=== PATIENT | male | born 1945 | race American Indian/Alaskan Native ===

== ENCOUNTER 2018-11-23 10:02 | Outpatient (CLI) | payer MEDICARE, BC | END 2018-11-23 10:03 | disposition home or self-care (01) | LOC: C.PAT 10:02 | DX: I87.1 Compression of vein (principal) ==

== ENCOUNTER 2018-11-27 11:24 | Inpatient (IN) | payer MEDICARE, BC ==
[2018-11-23 10:16] VITALS: BMI 25.0
[2018-11-27 12:24] LABS: CALCIUM 8.6 mg/dl (8.6-10.4)
[2018-11-27] MEDS ORDERED: Lidocaine 2% MPF (5 ml) Inj ONE (12:34)
[2018-11-27] MEDS ORDERED: Iodixanol 320 MG/ML 100 ML BOTTLE IV ONE ×2 (12:35→12:47)
[2018-11-27] MEDS ORDERED: Midazolam 2 MG/2 ML VIAL ONE ×2 (12:41→13:01)
--- NOTE | 2018-11-27 13:21 | PCM.SURG1 ---
Surgeon's Initial Post Op Note - Surgeon's Notes Surgeon: maikel Corrosion Control Engineer: 0 Type of Anesthesia: IV Sedation Anesthesia Administered By: doc Pre-Operative Diagnosis: renal failure/ central vein stenosis Operative Findings: tight stenosis at junction of subclavian and innominate vein right. suspected 2nd stenosis at innominate Post-Operative Diagnosis: same Operation Performed: fistulagram right arm/ balloon angioplasty of right sublavian. balloon angioplasty of innominate vein Specimen/Specimens Removed: 0 Estimated Blood Loss: EBL {In ML}: 10 Blood Products Given: N/A Drains Used: No Drains Post-Op Condition: Good Date of Surgery/Procedure: 11/27/18 Time of Surgery/Procedure: 13:22
--- NOTE | 2018-11-27 17:23 | CP.PCM.CON ---
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 will repeat labs in AM Hypertension control with meds as ordered. Maintain hemodynamics stable. Avoid hypotension. Patient not on ACEI/ARB due to advanced CKD Monitor Input/Output, daily weights and renal function with basic metabolic panel continue with lasix increased to 40 bid on iron and MVI Re Tx: continue with prograf and prednisone Dose meds/antibiotics for reduced GFR. Avoid fleets enema/magnesium based laxatives. Avoid nephrotoxins/NSAIDs/ iodinated contrast (unless needed emergently) Glycemic control Further work up/management as per primary team Thanks for allowing me to participate in care of your patient. Will follow patient with you. Please call if any Qs. had d/w team Dr Silvano Recinos Office: [phone] Chief Complaint; leg swelling Reason for consult: CKD 5 HPI: Pt is a 73 M with hx of hypertension (years) DM ESRD s/p HD x 4 years then DDRT in 2009 with progressive decline in kidney function now with CKD 5 presented for Rt arm swelling where he had AVF and found to have stenosis s/p ballon angiplasty. renal consult for CKD and Tx management Denies OTC/herbal meds or NSAIDs No recent iodinated contrast exposure. No obvious episodes of low BP. c/o leg swelling. no nausea/vomitting/SOB. says appetite okay ROS: Cardiovascular: No chest pain. Pulmonary: No shortness of breath Gastrointestinal: denies abdominal pain No nausea. No vomiting. Genitourinary: No pain while urinating. Denies blood in urine. All other negative except as mentioned in HPI Physical Examination: General Appearance: Comfortable, in no acute respiratory distress, co-operative . Vitals reviewed and noted as below Head; Atraumatic, normocephalic ENT: no ulcers no thrush. Tongue is midline. Oropharynx: no rash or ulcers. EYES: Pupils are equal, round and reactive to light accommodation. Eye muscles and extraocular movement intact. Sclera is anicteric. Neck; supple no lymphadenopathy, no thyromegaly or bruit Lungs: Normal respiratory rate/effort. Breath sounds bilateral equal and clear Heart: Normal rate. s1s2 normal. No rub or gallop. Extremities: 1+ edema. No varicose veins Neurological: Patient is alert, awake and oriented to person, place and time. No focal deficit. Strength bilateral appropriate and equal Skin: Warm and dry. Normal turgor. No rash. Palpitation: Normal elasticity for age Abdomen: Abdomen is soft. Bowel sounds +. There is no abdominal tenderness, no guarding/rigidity no organomegaly Psych: normal insight and normal affect/mood MSK: no joint tenderness or swelling. Digits and nails normal, no deformity : kidney or bladder not palpable Rt AVF with thrill and bruit RUE edema + Labs/imaging reviewed. Past medical history, past surgical history, family history, social history, allergy reviewed and noted as below Family hx: no hx of CKD. Rest non-contributory Past Patient History - Past Medical History & Family History Past Medical History?: Yes - Past Social History Smoking Status: Former Smoker - CARDIAC Hx Cardiac Disorders: Yes Hx Hypertension: Yes - PULMONARY Hx Respiratory Disorders: No - NEUROLOGICAL Hx Neurological Disorder: No - HEENT Hx HEENT Problems: Yes Hx Cataracts: Yes Hx Glaucoma: Yes - RENAL Hx Chronic Kidney Disease: Yes Type of Dialysis Access: RIGHT ARM AV SHUNT Hx Renal Failure: Yes Other/Comment: HX: KIDNEY TRANSPLANT 2009 - ENDOCRINE/METABOLIC Hx Endocrine Disorders: Yes Hx Diabetes Mellitus Type 2: Yes - HEMATOLOGICAL/ONCOLOGICAL Hx Blood Disorders: Yes Hx Blood Transfusions: Yes Hx Blood Transfusion Reaction: No - INTEGUMENTARY Hx Dermatological Problems: No - MUSCULOSKELETAL/RHEUMATOLOGICAL Hx Musculoskeletal Disorders: No - GASTROINTESTINAL Hx Gastrointestinal Disorders: Yes Hx Gall Bladder Disease: Yes - GENITOURINARY/GYNECOLOGICAL Hx Genitourinary Disorders: No - PSYCHIATRIC Hx Psychophysiologic Disorder: No - SURGICAL HISTORY Hx Surgeries: Yes Hx Arteriovenous Shunt: Yes (RIGHT UPPER ARM) Hx Cataract Extraction: Yes (LEFT EYE ) Hx Cholecystectomy: Yes Other/Comment: HX: KIDNEY TRANSPLANT(2009) - ANESTHESIA Hx Anesthesia: Yes Hx Anesthesia Reactions: No Hx Malignant Hyperthermia: No Has any member of the family had a problem w/ anesthesia?: No Meds Allergies/Adverse Reactions: Allergies Allergy/AdvReac Type Severity Reaction Status Date / Time No Known Allergies Allergy Verified 11/23/18 10:13 - Medications Medications: Current Medications Allopurinol (Zyloprim) 100 mg PO DAILY [facility] Amlodipine Besylate (Norvasc) 10 mg PO DAILY [facility] Carvedilol (Coreg) 25 mg PO BID [facility] Cinacalcet (Sensipar) 30 mg PO DAILY [facility] Clonidine HCl (Catapres) 0.1 mg PO DAILY [facility] Ferrous Sulfate (Feosol) 325 mg PO DAILY [facility] Furosemide (Lasix) 40 mg PO BID [facility] Hydralazine HCl (Apresoline) 50 mg PO BID [facility] Insulin Glargine (Lantus) 13 unit SC HS [facility] Pantoprazole Sodium (Protonix Ec Tab) 40 mg PO DAILY [facility] Prednisone (Prednisone Tab) 5 mg PO DAILY [facility] Rosuvastatin Calcium (Crestor) 5 mg PO HS [facility] Sevelamer Carbonate (Renvela) 800 mg PO DAILY [facility] Sodium Bicarbonate (Sodium Bicarbonate Tab) 1,300 mg PO BID [facility] Tacrolimus (Prograf Cap) 3 mg PO BID [facility] Tamsulosin HCl (Flomax) 0.4 mg PO DAILY [facility] Vitamin B Complex/Vit C/Folic Acid (Nephro-Mikey) 1 tab PO 0800 [facility] Results - Labs Result Diagrams: 11/27/18 11:58 Labs: Laboratory Results - last 24 hr 11/27/18 11/27/18 11/27/18 11:58 12:00 16:54 Sodium 141 Potassium 4.5 Chloride 112 H Carbon Dioxide 18 L Anion Gap 16 BUN 100 H* Creatinine 6.0 H Est GFR ( Amer) 11 Est GFR (Non-Af Amer) 9 POC Glucose (mg/dL) 105 240 H Random Glucose 98 Calcium 8.6
[2018-11-27] MEDS: (Lantus) Insulin Glargine, Recombinant SC SCH (21:38)
[2018-11-27] MEDS: (Novolin R) Insulin Human Regular 100 units/ml vial SC SCH (21:39)
--- NOTE | 2018-11-28 07:33 | VAS ---
DATE: 11/27/2018 PREOPERATIVE DIAGNOSES: Renal failure and central vein stenosis. PROCEDURES CARRIED OUT: Fistulogram, right arm and balloon angioplasty of right subclavian vein and right innominate vein. SURGEON: Chan Mason Jr., MD. TITLE INSURANCE SALES REPRESENTATIVE: None. ANESTHESIOLOGIST: Mr. Carr. ANESTHESIA: Local with sedation. INDICATIONS: A 73-year-old man with renal insufficiency, kidney creatinine of approximately 5. The patient is complaining there was more swelling in the arm. OPERATIVE FINDINGS: The initial fistulogram demonstrated there is a tight web-like stenosis at the junction of the subclavian vein and the innominate vein. In addition, on a subsequent film, it appeared that there was stenosis actually in the innominate vein itself and this was dilated to 12 mm. The arterial anastomosis was not visualized as the catheter came out unexpectedly. DESCRIPTION OF PROCEDURE: The patient was given local anesthesia. The fistula was punctured and the guidewire advanced centrally. There is only one as far as the subclavian vein and did not go centrally. We then placed in a larger sheath, a 6-L[place]ian sheath, a CURRENTenstein catheter, stiff-angled Glidewire and eventually we were able to cross this lesion, which crossed then. We then exchanged for a [employer] wire and we were able to balloon this initially with an 8 mm balloon that had a small waist. Then, finally with a 12 mm balloon that had a waist that was fairly pronounced during its inflation. We then subsequently saw what appeared to be a central vein stenosis in the innominate vein and we dilated this again with a 12 mm balloon. After all this was completed, the flow appeared to be much better. The stenosis was no longer evident and the balloons and sheath were withdrawn. Pressure was applied to the puncture site and the bleeding ceased spontaneously. BLOOD LOSS: Less than 10 mL. Chan Mason Jr., MD cc: Dr. Edwards.
[2018-11-28 07:47] LABS: BASO % 0.9 % (0.0-2.0); EOS # 0.1 K/uL (0.0-0.7); LYMPH % 34.4 % (20.0-40.0); MEAN CORPUSCULAR HEMOGLOBIN 29.6 pg (27.0-31.0); MEAN CORPUSCULAR HGB CONC 32.5 g/dL (33.0-37.0); MEAN PLATELET VOLUME 8.5 fL (7.2-11.7); MONO # 0.6 K/uL (0.0-0.8); MONO % 9.7 % (0.0-10.0); NEUT # 3.1 K/uL (1.8-7.0); RBC 3.05 Mil/uL (4.40-5.90); RED CELL DISTRIBUTION WIDTH 14.3 % (11.5-14.5); WHITE BLOOD COUNT 5.8 K/uL (4.8-10.8)
[2018-11-28] MEDS: Multivitamin Vitamin B Complex (Nephro-Vite) Tab PO SCH (08:11)
[2018-11-28] MEDS: (Novolin R) Insulin Human Regular 100 units/ml vial SC SCH ×4 (08:18→21:10)
[2018-11-28 08:23] LABS: ALB/GLOB RATIO 1.5 (1.0-2.1); ALBUMIN 3.1 g/dL (3.5-5.0); CALCIUM 8.7 mg/dl (8.6-10.4)
[2018-11-28] MEDS: Pantoprazole 40 mg EC Tab PO SCH (09:47)
[2018-11-28] MEDS: EPOETIN ALFA 4,000 UNIT/ML ML Dialysis SC SCH (11:11)
--- NOTE | 2018-11-28 11:49 | CP.PCM.PN ---
Subjective - Date & Time of Evaluation Date of Evaluation: 11/28/18 Time of Evaluation: 06:49 - Subjective Subjective: Vascular Surgery Dr. Mason Pt seen and examined @bedside. Pt underwent fistulogram and balloon angioplasty yesterday. Pt tolerated procedure well w/ no complications. No acute events overnight. Pt has no complaints. pain well controlled. denies F/C,CP, SOB, arm pain. tolerating diet. Objective - Vital Signs/Intake and Output Vital Signs (last 24 hours): Temp Pulse Resp BP Pulse Ox 98.7 F 67 20 151/62 H 95 11/28/18 07:31 11/28/18 07:31 11/28/18 07:31 11/28/18 09:42 11/28/18 09:20 Intake and Output: 11/28/18 11/28/18 06:59 18:59 Intake Total 120 Balance 120 - Medications Medications: Current Medications Allopurinol (Zyloprim) 100 mg PO DAILY [facility] Last Admin: 11/28/18 09:41 Dose: 100 mg Amlodipine Besylate (Norvasc) 10 mg PO DAILY [facility] Last Admin: 11/28/18 09:42 Dose: 10 mg Carvedilol (Coreg) 25 mg PO BID [facility] Last Admin: 11/28/18 09:42 Dose: 25 mg Cinacalcet (Sensipar) 30 mg PO DAILY [facility] Last Admin: 11/28/18 09:39 Dose: 30 mg Clonidine HCl (Catapres) 0.1 mg PO DAILY [facility] Last Admin: 11/28/18 09:41 Dose: 0.1 mg Epoetin Jony (Procrit) 8,000 unit SC TTS [facility] Last Admin: 11/28/18 11:11 Dose: 8,000 unit Ferrous Sulfate (Feosol) 325 mg PO DAILY [facility] Last Admin: 11/28/18 09:42 Dose: 325 mg Furosemide (Lasix) 40 mg PO BID [facility] Last Admin: 11/28/18 09:40 Dose: 40 mg Hydralazine HCl (Apresoline) 50 mg PO BID [facility] Last Admin: 11/28/18 09:40 Dose: 50 mg Insulin Glargine (Lantus) 13 unit SC HS [facility] Last Admin: 11/27/18 21:38 Dose: 13 u Insulin Human Regular (Novolin R) 0 unit SC ACHS [facility]; Protocol Last Admin: 11/28/18 11:30 Dose: Not Given Pantoprazole Sodium (Protonix Ec Tab) 40 mg PO DAILY [facility] Last Admin: 11/28/18 09:47 Dose: 40 mg Prednisone (Prednisone Tab) 5 mg PO DAILY [facility] Last Admin: 11/28/18 09:41 Dose: 5 mg Rosuvastatin Calcium (Crestor) 5 mg PO HS [facility] Last Admin: 11/27/18 21:38 Dose: 5 mg Sevelamer Carbonate (Renvela) 800 mg PO DAILY [facility] Last Admin: 11/28/18 09:39 Dose: 800 mg Sodium Bicarbonate (Sodium Bicarbonate Tab) 1,300 mg PO BID [facility] Last Admin: 11/28/18 09:39 Dose: 1,300 mg Tacrolimus (Prograf Cap) 3 mg PO BID [facility] Last Admin: 11/28/18 09:39 Dose: 3 mg Tamsulosin HCl (Flomax) 0.4 mg PO DAILY [facility] Last Admin: 11/28/18 09:42 Dose: 0.4 mg Vitamin B Complex/Vit C/Folic Acid (Nephro-Mikey) 1 tab PO 0800 [facility] Last Admin: 11/28/18 08:11 Dose: 1 tab - Labs Labs: 11/28/18 07:34 11/28/18 07:34 - Constitutional Appears: Non-toxic, No Acute Distress - Head Exam Head Exam: NORMAL INSPECTION - Eye Exam Eye Exam: Normal appearance - ENT Exam ENT Exam: Mucous Membranes Moist - Respiratory Exam Respiratory Exam: NORMAL BREATHING PATTERN. absent: Accessory Muscle Use, Respiratory Distress - Cardiovascular Exam Cardiovascular Exam: REGULAR RHYTHM. absent: Bradycardia, Tachycardia - GI/Abdominal Exam GI & Abdominal Exam: Soft. absent: Distended, Tenderness - Extremities Exam Extremities Exam: Normal Inspection - Neurological Exam Neurological Exam: Alert, Awake, Oriented x3 - Psychiatric Exam Psychiatric exam: Normal Affect, Normal Mood - Skin Skin Exam: Dry, Intact, Normal Color, Warm Assessment and Plan - Assessment and Plan (Free Text) Assessment: 73 y/o M w/ ESRD and subclavian vein stenosis POD#1 s/p fisulogram and balloon angioplasty Plan: - HD as per Nephrology - monitor pulses - f/u arrangement of outpatient HD - Pt cleared for discharge after successful completion of Dialysis today Pt discussed w/ Dr. Isabella Hinojosa DO PGY3
[2018-11-28 16:18] LABS: HEPATITIS B SURFACE AG Negative (NEGATIVE)
[2018-11-28 16:23] LABS: HEPATITIS B CORE AB NEGATIVE (NEGATIVE)
[2018-11-28 16:36] LABS: HEPATITIS C ANTIBODY NEGATIVE (NEGATIVE)
--- NOTE | 2018-11-28 16:37 | CP.PCM.PN ---
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 he is making less urine. also fluid overload status. he is willing to start dialysis now. AVF ready for use. Hypertension control with meds as ordered. Maintain hemodynamics stable. Avoid hypotension. Patient not on ACEI/ARB due to advanced CKD Monitor Input/Output, daily weights and renal function with basic metabolic panel continue with lasix on iron and MVI Re Tx: continue with prograf and prednisone, will gradually taper prograf Dose meds/antibiotics for reduced GFR. Avoid fleets enema/magnesium based laxatives. Avoid nephrotoxins/NSAIDs/ iodinated contrast (unless needed emergent ly) Glycemic control Further work up/management as per primary team SW consult for outpt HD placement. Thanks for allowing me to participate in care of your patient. Will follow patient with you. Please call if any Qs. had d/w team Dr Silvano Recinos Office: [phone] Chief Complaint; leg swelling Reason for consult: CKD 5 HPI: Pt is a 73 M with hx of hypertension (years) DM ESRD s/p HD x 4 years then DDRT in 2009 with progressive decline in kidney function now with CKD 5 presented for Rt arm swelling where he had AVF and found to have stenosis s/p ballon angiplasty. renal consult for CKD and Tx management Denies OTC/herbal meds or NSAIDs No recent iodinated contrast exposure. No obvious episodes of low BP. c/o leg swelling. no nausea/vomitting/SOB. says appetite okay ROS: reports making less urine Cardiovascular: No chest pain. Pulmonary: No shortness of breath Gastrointestinal: denies abdominal pain No nausea. No vomiting. Genitourinary: No pain while urinating. Denies blood in urine. All other negative except as mentioned in HPI Physical Examination: General Appearance: Comfortable, in no acute respiratory distress, co-operative . Vitals reviewed and noted as below Head; Atraumatic, normocephalic ENT: no ulcers no thrush. Tongue is midline. Oropharynx: no rash or ulcers. EYES: Pupils are equal, round and reactive to light accommodation. Eye muscles and extraocular movement intact. Sclera is anicteric. Neck; supple no lymphadenopathy, no thyromegaly or bruit Lungs: Normal respiratory rate/effort. Breath sounds left base with crackles Heart: Normal rate. s1s2 normal. No rub or gallop. Extremities: 1-2+ edema. No varicose veins Neurological: Patient is alert, awake and oriented to person, place and time. No focal deficit. Strength bilateral appropriate and equal Skin: Warm and dry. Normal turgor. No rash. Palpitation: Normal elasticity for age Abdomen: Abdomen is soft. Bowel sounds +. There is no abdominal tenderness, no guarding/rigidity no organomegaly Psych: normal insight and normal affect/mood MSK: no joint tenderness or swelling. Digits and nails normal, no deformity : kidney or bladder not palpable Rt AVF with thrill and bruit RUE edema + Labs/imaging reviewed. Past medical history, past surgical history, family history, social history, allergy reviewed and noted as below Family hx: no hx of CKD. Rest non-contributory Objective - Vital Signs/Intake and Output Vital Signs (last 24 hours): Temp Pulse Resp BP Pulse Ox 97.9 F 62 17 136/68 95 11/28/18 14:10 11/28/18 14:10 11/28/18 14:10 11/28/18 15:40 11/28/18 14:27 Intake and Output: 11/28/18 11/28/18 06:59 18:59 Intake Total 120 Balance 120 - Medications Medications: Current Medications Allopurinol (Zyloprim) 100 mg PO DAILY [facility] Last Admin: 11/28/18 09:41 Dose: 100 mg Amlodipine Besylate (Norvasc) 10 mg PO DAILY [facility] Last Admin: 11/28/18 09:42 Dose: 10 mg Carvedilol (Coreg) 25 mg PO BID [facility] Last Admin: 11/28/18 09:42 Dose: 25 mg Cinacalcet (Sensipar) 30 mg PO DAILY [facility] Last Admin: 11/28/18 09:39 Dose: 30 mg Clonidine HCl (Catapres) 0.1 mg PO DAILY [facility] Last Admin: 11/28/18 09:41 Dose: 0.1 mg Epoetin Jony (Procrit) 8,000 unit SC TTS [facility] Last Admin: 11/28/18 11:11 Dose: 8,000 unit Ferrous Sulfate (Feosol) 325 mg PO DAILY [facility] Last Admin: 11/28/18 09:42 Dose: 325 mg Furosemide (Lasix) 40 mg PO BID [facility] Last Admin: 11/28/18 09:40 Dose: 40 mg Hydralazine HCl (Apresoline) 50 mg PO BID [facility] Last Admin: 11/28/18 09:40 Dose: 50 mg Insulin Glargine (Lantus) 13 unit SC [facility] Last Admin: 11/27/18 21:38 Dose: 13 u Insulin Human Regular (Novolin R) 0 unit SC [facility]; Protocol Last Admin: 11/28/18 11:30 Dose: Not Given Pantoprazole Sodium (Protonix Ec Tab) 40 mg PO DAILY [facility] Last Admin: 11/28/18 09:47 Dose: 40 mg Prednisone (Prednisone Tab) 5 mg PO DAILY [facility] Last Admin: 11/28/18 09:41 Dose: 5 mg Rosuvastatin Calcium (Crestor) 5 mg PO HS [facility] Last Admin: 11/27/18 21:38 Dose: 5 mg Sevelamer Carbonate (Renvela) 800 mg PO DAILY [facility] Last Admin: 11/28/18 09:39 Dose: 800 mg Tacrolimus (Prograf Cap) 3 mg PO BID [facility] Last Admin: 11/28/18 09:39 Dose: 3 mg Tamsulosin HCl (Flomax) 0.4 mg PO DAILY [facility] Last Admin: 11/28/18 09:42 Dose: 0.4 mg Vitamin B Complex/Vit C/Folic Acid (Nephro-Mikey) 1 tab PO 0800 [facility] Last Admin: 11/28/18 08:11 Dose: 1 tab - Labs Labs: 11/28/18 07:34 11/28/18 07:34
[2018-11-28] MEDS: (Lantus) Insulin Glargine, Recombinant SC SCH (21:10)
--- NOTE | 2018-11-29 00:01 | CP.PCM.HP ---
Present on Admission - Present on Admission Any Indicators Present on Admission: No Past Patient History - Past Medical History & Family History Past Medical History?: Yes - Past Social History Smoking Status: Former Smoker - CARDIAC Hx Cardiac Disorders: Yes Hx Hypertension: Yes - PULMONARY Hx Respiratory Disorders: No - NEUROLOGICAL Hx Neurological Disorder: No - HEENT Hx HEENT Problems: Yes Hx Cataracts: Yes Hx Glaucoma: Yes - RENAL Hx Chronic Kidney Disease: Yes Type of Dialysis Access: RIGHT ARM AV SHUNT Hx Renal Failure: Yes Other/Comment: HX: KIDNEY TRANSPLANT 2009 - ENDOCRINE/METABOLIC Hx Endocrine Disorders: Yes Hx Diabetes Mellitus Type 2: Yes - HEMATOLOGICAL/ONCOLOGICAL Hx Blood Disorders: Yes Hx Blood Transfusions: Yes Hx Blood Transfusion Reaction: No - INTEGUMENTARY Hx Dermatological Problems: No - MUSCULOSKELETAL/RHEUMATOLOGICAL Hx Musculoskeletal Disorders: No Hx Falls: No - GASTROINTESTINAL Hx Gastrointestinal Disorders: Yes Hx Gall Bladder Disease: Yes - GENITOURINARY/GYNECOLOGICAL Hx Genitourinary Disorders: No - PSYCHIATRIC Hx Substance Use: No - SURGICAL HISTORY Hx Surgeries: Yes Hx Arteriovenous Shunt: Yes (RIGHT UPPER ARM) Hx Cataract Extraction: Yes (LEFT EYE ) Hx Cholecystectomy: Yes Other/Comment: HX: KIDNEY TRANSPLANT(2009) - ANESTHESIA Hx Anesthesia: Yes Hx Anesthesia Reactions: No Hx Malignant Hyperthermia: No Has any member of the family had a problem w/ anesthesia?: No Meds Home Medications: Home Medication List Medication Instructions Recorded Confirmed Type Sodium Bicarbonate Tab 1,300 mg PO BID tab 11/28/18 Rx Vitamin B Complex/Vit C/Folic 1 tab PO 0800 tab 11/28/18 Rx [Nephro-Mikey] Allergies/Adverse Reactions: Allergies Allergy/AdvReac Type Severity Reaction Status Date / Time No Known Allergies Allergy Verified 11/23/18 10:13 Results - Vital Signs Recent Vital Signs: Last Vital Signs Temp 97.8 F 11/28/18 16:47 Pulse 65 11/28/18 16:47 Resp 20 11/28/18 16:47 BP 150/67 11/28/18 17:47 Pulse Ox 95 11/28/18 20:10 - Labs Result Diagrams: 11/28/18 07:34 11/28/18 07:34 Labs: Laboratory Results - last 24 hr 11/28/18 11/28/18 11/28/18 07:28 07:34 07:34 WBC 5.8 RBC 3.05 L Hgb 9.0 L Hct 27.7 L MCV 91.0 MCH 29.6 MCHC 32.5 L RDW 14.3 Plt Count 142 MPV 8.5 Neut % (Auto) 54.0 Lymph % (Auto) 34.4 Cal[place]oun % (Auto) 9.7 Eos % (Auto) 1.0 Baso % (Auto) 0.9 Neut # (Auto) 3.1 Lymph # (Auto) 2.0 [place]oun # (Auto) 0.6 Eos # (Auto) 0.1 Baso # (Auto) 0.0 Sodium 138 Potassium 4.1 Chloride 110 H Carbon Dioxide 22 Anion Gap 10 BUN 102 H* Creatinine 6.3 H Est GFR ( Amer) 11 Est GFR (Non-Af Amer) 9 POC Glucose (mg/dL) 75 Random Glucose 89 Calcium 8.7 Phosphorus 4.1 Total Bilirubin 0.3 AST 27 ALT 21 Alkaline Phosphatase 113 Total Protein 5.2 L Albumin 3.1 L Globulin 2.1 L Albumin/Globulin Ratio 1.5 Hep Bs Antigen Hep Bs Antibody Hep B Core IgM Ab Hepatitis C Antibody 11/28/18 11/28/18 11/28/18 11:09 15:11 15:11 WBC RBC Hgb Hct MCV MCH MCHC RDW Plt Count MPV Neut % (Auto) Lymph % (Auto) [place] % (Auto) Eos % (Auto) Baso % (Auto) Neut # (Auto) Lymph # (Auto) [place] # (Auto) Eos # (Auto) Baso # (Auto) Sodium Potassium Chloride Carbon Dioxide Anion Gap BUN Creatinine Est GFR ( Amer) Est GFR (Non-Af Amer) POC Glucose (mg/dL) 74 Random Glucose Calcium Phosphorus Total Bilirubin AST ALT Alkaline Phosphatase Total Protein Albumin Globulin Albumin/Globulin Ratio Hep Bs Antigen Negative Hep Bs Antibody Negative Hep B Core IgM Ab Negative Hepatitis C Antibody Negative 11/28/18 11/28/18 16:03 21:05 WBC RBC Hgb Hct MCV MCH MCHC RDW Plt Count MPV Neut % (Auto) Lymph % (Auto) [place] % (Auto) Eos % (Auto) Baso % (Auto) Neut # (Auto) Lymph # (Auto) [place] # (Auto) Eos # (Auto) Baso # (Auto) Sodium Potassium Chloride Carbon Dioxide Anion Gap BUN Creatinine Est GFR ( Amer) Est GFR (Non-Af Amer) POC Glucose (mg/dL) 112 H 158 H Random Glucose Calcium Phosphorus Total Bilirubin AST ALT Alkaline Phosphatase Total Protein Albumin Globulin Albumin/Globulin Ratio Hep Bs Antigen Hep Bs Antibody Hep B Core IgM Ab Hepatitis C Antibody
[2018-11-29] MEDS: (Novolin R) Insulin Human Regular 100 units/ml vial SC SCH ×4 (07:51→21:48)
[2018-11-29] MEDS: Multivitamin Vitamin B Complex (Nephro-Vite) Tab PO SCH (08:16)
[2018-11-29] MEDS: Pantoprazole 40 mg EC Tab PO SCH (09:19)
--- NOTE | 2018-11-29 10:47 | HP ---
CHIEF COMPLAINT: The patient is admitted for dialysis. HISTORY OF PRESENT ILLNESS: This is a 73-year-old Nepalese male with history of type 2 diabetes, for long time on insulin; hypertension; hyperlipidemia. He was on dialysis for about four years until 2009 when he had a kidney transplant, and his transplant was rejected, and now the patient is admitted, and he underwent AV fistula, and he is for hemodialysis. The patient needs to be on dialysis. The patient is hemodynamically stable. The patient denies any cough, sore throat, runny nose. He denies any history of orthopnea, paroxysmal nocturnal dyspnea. He denies any chest pain. He denies any shortness of breath. The patient also had a swelling in the right arm where he had AV fistula and he was found to have stenosis and he underwent balloon angioplasty. The patient has been seen by Renal, and the patient is for hemodialysis. He denies any joint pain. He has tingling, numbness, paresthesias of the feet. He denies any history of polyuria, polydipsia, polyphagia. He denies any history of hematuria, pyuria. He denies any history of sneezing, itchy eyes, or itchy nose. PAST MEDICAL HISTORY: CKD, on hemodialysis, kidney transplant with rejection; hypertension; type 2 diabetes; hyperlipidemia. SOCIAL HISTORY: Nonsmoker, non-EtOH user. CURRENT MEDICATIONS: He is on Sensipar, Renvela, ferrous sulfate, Catapres, Lasix, Lantus, Flomax, Zyloprim, Lipitor, hydralazine, Coreg, Norvasc, Protonix, Prednisone, multivitamin, tacrolimus, and sodium bicarbonate. PHYSICAL EXAMINATION: GENERAL: An elderly male in no acute distress. Pale. VITAL SIGNS: Blood pressure 150/67, pulse 65, respiratory rate 20, temperature 97.8. SKIN: Pale. No bruises. No purpura. No petechiae. HEENT: Atraumatic and normocephalic. Positive pallor. Negative jaundice. Extraocular movements are intact. NECK: Supple. No JVD. No lymph node. No thyromegaly. CHEST WALL: Bilateral symmetrical expansion. No tenderness. No deformity. LUNGS: Bilaterally clear. No rales. No rhonchi. CARDIOVASCULAR SYSTEM: PMI not localized. S1, S2 plus. S3 positive. ABDOMEN: Soft, nontender. Bowel sounds are positive. EXTREMITIES: No clubbing, cyanosis, or edema. CENTRAL NERVOUS SYSTEM: Awake, alert, and oriented x3. Cranial nerves II through XII are normal. Power 5/5 x4. Plantars are equivocal. ASSESSMENT: 1. End-stage renal disease for hemodialysis. 2. Hypertension. 3. Type 2 diabetes. 4. Hyperlipidemia. PLAN: Admit. Detailed orders are written. Seen and examined. Henrik García MD
--- NOTE | 2018-11-29 12:08 | CP.PCM.PN ---
Subjective - Date & Time of Evaluation Date of Evaluation: 11/29/18 Time of Evaluation: 12:06 - Subjective Subjective: Nephrology Consultation Note: Assessment: Stable Subclavian stenosis s/p ballon angiplasty Diabetic chronic Kidney Disease (E11.22) Hypertensive Chronic Kidney Disease (I12.9) Chronic Kidney Disease (N18.5) Stage 5 started HD 11/28/18 Anemia (D64.9), Hyperphosphatemia (E83.39), Secondary Hyperparathyroidism (E21.1), acidosis ESRD s/p HD x 4 years then DDRT in 2009 Plan HD today 2nd session. Hypertension control with meds as ordered. Maintain hemodynamics stable. Avoid hypotension. Patient not on ACEI/ARB due to advanced CKD Re Tx: continue with prograf and prednisone, will gradually taper off prograf and eventually prednisone as well Dose meds/antibiotics for reduced GFR. Avoid fleets enema/magnesium based laxatives. Avoid nephrotoxins/NSAIDs/ iodinated contrast (unless needed emergently) Glycemic control Further work up/management as per primary team SW consult for outpt HD placement. Thanks for allowing me to participate in care of your patient. Will follow patient with you. Please call if any Qs. had d/w team Dr Silvano Recinos Office: [phone] Chief Complaint; leg swelling Reason for consult: CKD 5 HPI: Pt is a 73 M with hx of hypertension (years) DM ESRD s/p HD x 4 years then DDRT in 2009 with progressive decline in kidney function now with CKD 5 presented for Rt arm swelling where he had AVF and found to have stenosis s/p ballon angiplasty. renal consult for CKD and Tx management Denies OTC/herbal meds or NSAIDs No recent iodinated contrast exposure. No obvious episodes of low BP. c/o leg swelling. no nausea/vomitting/SOB. says appetite okay ROS: reports making less urine Cardiovascular: No chest pain. Pulmonary: No shortness of breath Gastrointestinal: denies abdominal pain No nausea. No vomiting. Genitourinary: No pain while urinating. Denies blood in urine. All other negative except as mentioned in HPI Physical Examination: General Appearance: Comfortable, in no acute respiratory distress, co-operative . Vitals reviewed and noted as below Head; Atraumatic, normocephalic ENT: no ulcers no thrush. Tongue is midline. Oropharynx: no rash or ulcers. EYES: Pupils are equal, round and reactive to light accommodation. Eye muscles and extraocular movement intact. Sclera is anicteric. Neck; supple no lymphadenopathy, no thyromegaly or bruit Lungs: Normal respiratory rate/effort. Breath sounds left base with crackles Heart: Normal rate. s1s2 normal. No rub or gallop. Extremities: 1-2+ edema. No varicose veins Neurological: Patient is alert, awake and oriented to person, place and time. No focal deficit. Strength bilateral appropriate and equal Skin: Warm and dry. Normal turgor. No rash. Palpitation: Normal elasticity for age Abdomen: Abdomen is soft. Bowel sounds +. There is no abdominal tenderness, no guarding/rigidity no organomegaly Psych: normal insight and normal affect/mood MSK: no joint tenderness or swelling. Digits and nails normal, no deformity : kidney or bladder not palpable Rt AVF with thrill and bruit RUE edema + Labs/imaging reviewed. Past medical history, past surgical history, family history, social history, allergy reviewed and noted as below Family hx: no hx of CKD. Rest non-contributory Objective - Vital Signs/Intake and Output Vital Signs (last 24 hours): Temp Pulse Resp BP Pulse Ox 98.1 F 60 20 141/67 96 11/29/18 08:09 11/29/18 08:09 11/29/18 08:09 11/29/18 09:19 11/29/18 08:09 Intake and Output: 11/29/18 11/29/18 06:59 18:59 Intake Total 420 Balance 420 - Medications Medications: Current Medications Allopurinol (Zyloprim) 100 mg PO DAILY [facility] Last Admin: 11/29/18 09:19 Dose: 100 mg Amlodipine Besylate (Norvasc) 10 mg PO DAILY [facility] Last Admin: 11/29/18 09:20 Dose: 10 mg Carvedilol (Coreg) 25 mg PO BID [facility] Last Admin: 11/29/18 09:19 Dose: 25 mg Cinacalcet (Sensipar) 30 mg PO DAILY [facility] Last Admin: 11/29/18 09:21 Dose: 30 mg Clonidine HCl (Catapres) 0.1 mg PO DAILY [facility] Last Admin: 11/29/18 09:19 Dose: 0.1 mg Epoetin Jony (Procrit) 8,000 unit SC TTS [facility] Last Admin: 11/28/18 11:11 Dose: 8,000 unit Furosemide (Lasix) 40 mg PO DAILY [facility] Hydralazine HCl (Apresoline) 50 mg PO BID [facility] Last Admin: 11/29/18 09:18 Dose: 50 mg Insulin Glargine (Lantus) 10 unit SC HS [facility] Insulin Human Regular (Novolin R) 0 unit SC ACHS [facility]; Protocol Last Admin: 11/29/18 07:51 Dose: Not Given Pantoprazole Sodium (Protonix Ec Tab) 40 mg PO DAILY [facility] Last Admin: 11/29/18 09:19 Dose: 40 mg Prednisone (Prednisone Tab) 5 mg PO DAILY [facility] Last Admin: 11/29/18 09:21 Dose: 5 mg Rosuvastatin Calcium (Crestor) 5 mg PO HS [facility] Last Admin: 11/28/18 21:09 Dose: 5 mg Sevelamer Carbonate (Renvela) 800 mg PO DAILY [facility] Last Admin: 11/29/18 09:18 Dose: 800 mg Tacrolimus (Prograf Cap) 2 mg PO BID [facility] Last Admin: 11/29/18 09:21 Dose: 2 mg Tamsulosin HCl (Flomax) 0.4 mg PO DAILY [facility] Last Admin: 11/29/18 09:19 Dose: 0.4 mg Vitamin B Complex/Vit C/Folic Acid (Nephro-Mikey) 1 tab PO 0800 [facility] Last Admin: 11/29/18 08:16 Dose: 1 tab - Labs Labs: 11/28/18 07:34 11/28/18 07:34
[2018-11-29] MEDS: (Lantus) Insulin Glargine, Recombinant SC SCH (21:47)
--- NOTE | 2018-11-29 22:49 | CP.PCM.PN ---
Subjective - Date & Time of Evaluation Date of Evaluation: 11/29/18 Time of Evaluation: 07:00 - Subjective Subjective: dictated Objective - Vital Signs/Intake and Output Vital Signs (last 24 hours): Temp Pulse Resp BP Pulse Ox 97.7 F 63 18 158/72 H 96 11/29/18 18:15 11/29/18 18:15 11/29/18 18:15 11/29/18 20:45 11/29/18 18:15 Intake and Output: 11/29/18 11/30/18 18:59 06:59 Intake Total 360 Balance 360 - Medications Medications: Current Medications Allopurinol (Zyloprim) 100 mg PO DAILY [facility] Last Admin: 11/29/18 09:19 Dose: 100 mg Amlodipine Besylate (Norvasc) 10 mg PO DAILY [facility] Last Admin: 11/29/18 09:20 Dose: 10 mg Carvedilol (Coreg) 25 mg PO BID [facility] Last Admin: 11/29/18 17:12 Dose: Not Given Cinacalcet (Sensipar) 30 mg PO DAILY [facility] Last Admin: 11/29/18 09:21 Dose: 30 mg Clonidine HCl (Catapres) 0.1 mg PO DAILY [facility] Last Admin: 11/29/18 09:19 Dose: 0.1 mg Epoetin Jony (Procrit) 8,000 unit SC TTS [facility] Last Admin: 11/28/18 11:11 Dose: 8,000 unit Furosemide (Lasix) 40 mg PO DAILY [facility] Hydralazine HCl (Apresoline) 50 mg PO BID [facility] Last Admin: 11/29/18 17:11 Dose: Not Given Insulin Glargine (Lantus) 10 unit SC [facility] Last Admin: 11/29/18 21:47 Dose: Not Given Insulin Human Regular (Novolin R) [address] [facility]; Protocol Last Admin: 11/29/18 21:48 Dose: Not Given Pantoprazole Sodium (Protonix Ec Tab) 40 mg PO DAILY [facility] Last Admin: 11/29/18 09:19 Dose: 40 mg Prednisone (Prednisone Tab) 5 mg PO DAILY [facility] Last Admin: 11/29/18 09:21 Dose: 5 mg Rosuvastatin Calcium (Crestor) 5 mg PO HS [facility] Last Admin: 11/29/18 21:46 Dose: 5 mg Sevelamer Carbonate (Renvela) 800 mg PO DAILY [facility] Last Admin: 11/29/18 09:18 Dose: 800 mg Tacrolimus (Prograf Cap) 2 mg PO BID [facility] Last Admin: 11/29/18 17:32 Dose: 2 mg Tamsulosin HCl (Flomax) 0.4 mg PO DAILY [facility] Last Admin: 11/29/18 09:19 Dose: 0.4 mg Vitamin B Complex/Vit C/Folic Acid (Nephro-Mikey) 1 tab PO 0800 [facility] Last Admin: 11/29/18 08:16 Dose: 1 tab - Labs Labs: 11/28/18 07:34 11/28/18 07:34
--- NOTE | 2018-11-30 03:15 | PN ---
DATE: 11/29/2018 SUBJECTIVE: The patient underwent hemodialysis and he is doing well. No fever. No chills. He is less short of breath, less edematous. He has an extensive anasarca. PHYSICAL EXAMINATION: VITAL SIGNS: Blood pressure 145/70, pulse 92, respiratory rate 18, temperature 98. LUNGS: Decreased air entry. Fine crackles. No rhonchi. CARDIOVASCULAR SYSTEM: PMI not localized. S1, S2 plus S3 positive. ABDOMEN: Soft, nontender. Bowel sounds are positive. ASSESSMENT: 1. End-stage renal disease, on hemodialysis. The patient has history of chronic kidney disease with necrotic syndrome. 2. Type 2 diabetes, poorly controlled. 3. Hypertension, poorly controlled. PLAN: Continue hemodialysis. Outpatient ____ for hemodialysis. Monitor the patient. Henrik García MD
[2018-11-30] MEDS: Multivitamin Vitamin B Complex (Nephro-Vite) Tab PO SCH (07:55)
[2018-11-30 07:56] LABS: BASO % 0.9 % (0.0-2.0); EOS # 0.1 K/uL (0.0-0.7); EOS % 1.4 % (0.0-4.0); LYMPH # 2.1 K/uL (1.0-4.3); MEAN CELL VOLUME 90.2 fL (80.0-94.0); MEAN CORPUSCULAR HEMOGLOBIN 29.6 pg (27.0-31.0); MEAN CORPUSCULAR HGB CONC 32.8 g/dL (33.0-37.0); MEAN PLATELET VOLUME 8.6 fL (7.2-11.7); MONO # 0.7 K/uL (0.0-0.8); MONO % 14.4 % (0.0-10.0); NEUT # 2.3 K/uL (1.8-7.0); NEUT % 43.3 % (50.0-75.0); NRBC % 0.2 % (0.0-2.0); RBC 3.02 Mil/uL (4.40-5.90); RED CELL DISTRIBUTION WIDTH 14.7 % (11.5-14.5); WHITE BLOOD COUNT 5.2 K/uL (4.8-10.8)
[2018-11-30] MEDS: (Novolin R) Insulin Human Regular 100 units/ml vial SC SCH ×4 (07:58→21:25)
[2018-11-30 08:03] LABS: CALCIUM 7.9 mg/dl (8.6-10.4)
[2018-11-30] MEDS: Pantoprazole 40 mg EC Tab PO SCH (09:37)
[2018-11-30] MEDS: EPOETIN ALFA 4,000 UNIT/ML ML Dialysis SC SCH (12:37)
--- NOTE | 2018-11-30 13:24 | CP.PCM.PN ---
Subjective - Date & Time of Evaluation Date of Evaluation: 11/30/18 Time of Evaluation: 13:23 - Subjective Subjective: Nephrology Consultation Note: Assessment: Stable Subclavian stenosis s/p ballon angiplasty Diabetic chronic Kidney Disease (E11.22) Hypertensive Chronic Kidney Disease (I12.9) Chronic Kidney Disease (N18.5) Stage 5 started HD 11/28/18 Anemia (D64.9), Hyperphosphatemia (E83.39), Secondary Hyperparathyroidism (E21.1), acidosis ESRD s/p HD x 4 years then DDRT in 2009 Plan HD tomorro3 rd session. Hypertension control with meds as ordered. Maintain hemodynamics stable. Avoid hypotension. Patient not on ACEI/ARB due to advanced CKD Re Tx: continue with prograf and prednisone, will gradually taper off prograf and eventually prednisone as well Dose meds/antibiotics for reduced GFR. Avoid fleets enema/magnesium based laxatives. Avoid nephrotoxins/NSAIDs/ iodinated contrast (unless needed emergently) Glycemic control Further work up/management as per primary team SW consult for outpt HD placement. Thanks for allowing me to participate in care of your patient. Will follow patient with you. Please call if any Qs. had d/w team Dr Silvano Recinos Office: [phone] Chief Complaint; leg swelling Reason for consult: CKD 5 HPI: Pt is a 73 M with hx of hypertension (years) DM ESRD s/p HD x 4 years then DDRT in 2009 with progressive decline in kidney function now with CKD 5 presented for Rt arm swelling where he had AVF and found to have stenosis s/p ballon angiplasty. renal consult for CKD and Tx management Denies OTC/herbal meds or NSAIDs No recent iodinated contrast exposure. No obvious episodes of low BP. c/o leg swelling. no nausea/vomitting/SOB. says appetite okay ROS: reports making less urine Cardiovascular: No chest pain. Pulmonary: No shortness of breath Gastrointestinal: denies abdominal pain No nausea. No vomiting. Genitourinary: No pain while urinating. Denies blood in urine. All other negative except as mentioned in HPI Physical Examination: General Appearance: Comfortable, in no acute respiratory distress, co-operative . Vitals reviewed and noted as below Head; Atraumatic, normocephalic ENT: no ulcers no thrush. Tongue is midline. Oropharynx: no rash or ulcers. EYES: Pupils are equal, round and reactive to light accommodation. Eye muscles and extraocular movement intact. Sclera is anicteric. Neck; supple no lymphadenopathy, no thyromegaly or bruit Lungs: Normal respiratory rate/effort. Breath sounds at base with crackles Heart: Normal rate. s1s2 normal. No rub or gallop. Extremities: 1-2+ edema. No varicose veins Neurological: Patient is alert, awake and oriented to person, place and time. No focal deficit. Strength bilateral appropriate and equal Skin: Warm and dry. Normal turgor. No rash. Palpitation: Normal elasticity for age Abdomen: Abdomen is soft. Bowel sounds +. There is no abdominal tenderness, no guarding/rigidity no organomegaly Psych: normal insight and normal affect/mood MSK: no joint tenderness or swelling. Digits and nails normal, no deformity : kidney or bladder not palpable Rt AVF with thrill and bruit RUE edema + Labs/imaging reviewed. Past medical history, past surgical history, family history, social history, allergy reviewed and noted as below Family hx: no hx of CKD. Rest non-contributory Objective - Vital Signs/Intake and Output Vital Signs (last 24 hours): Temp Pulse Resp BP Pulse Ox 98.7 F 66 20 150/70 96 11/30/18 07:37 11/30/18 07:37 11/30/18 07:37 11/30/18 09:37 11/30/18 07:37 Intake and Output: 11/30/18 11/30/18 06:59 18:59 Intake Total 300 Balance 300 - Medications Medications: Current Medications Allopurinol (Zyloprim) 100 mg PO DAILY [facility] Last Admin: 11/30/18 09:36 Dose: 100 mg Amlodipine Besylate (Norvasc) 10 mg PO DAILY [facility] Last Admin: 11/30/18 09:37 Dose: 10 mg Carvedilol (Coreg) 25 mg PO BID [facility] Last Admin: 11/30/18 09:37 Dose: 25 mg Cinacalcet (Sensipar) 30 mg PO DAILY [facility] Last Admin: 11/30/18 09:36 Dose: 30 mg Clonidine HCl (Catapres) 0.1 mg PO DAILY [facility] Last Admin: 11/30/18 09:37 Dose: 0.1 mg Epoetin Jony (Procrit) 8,000 unit SC TTS [facility] Last Admin: 11/30/18 12:37 Dose: 8,000 unit Furosemide (Lasix) 40 mg PO DAILY [facility] Hydralazine HCl (Apresoline) 50 mg PO BID [facility] Last Admin: 11/30/18 09:37 Dose: 50 mg Insulin Glargine (Lantus) 10 unit SC HS [facility] Last Admin: 11/29/18 21:47 Dose: Not Given Insulin Human Regular (Novolin R) 0 unit SC ACHS [facility]; Protocol Last Admin: 11/30/18 12:24 Dose: Not Given Pantoprazole Sodium (Protonix Ec Tab) 40 mg PO DAILY [facility] Last Admin: 11/30/18 09:37 Dose: 40 mg Prednisone (Prednisone Tab) 5 mg PO DAILY [facility] Last Admin: 11/30/18 09:37 Dose: 5 mg Rosuvastatin Calcium (Crestor) 5 mg PO HS [facility] Last Admin: 11/29/18 21:46 Dose: 5 mg Tacrolimus (Prograf Cap) 2 mg PO BID [facility] Last Admin: 11/30/18 09:37 Dose: 2 mg Tamsulosin HCl (Flomax) 0.4 mg PO DAILY [facility] Last Admin: 11/30/18 09:37 Dose: 0.4 mg Vitamin B Complex/Vit C/Folic Acid (Nephro-Mikey) 1 tab PO 0800 [facility] Last Admin: 11/30/18 07:55 Dose: 1 tab - Labs Labs: 11/30/18 07:43 11/30/18 07:43
[2018-11-30] MEDS: (Lantus) Insulin Glargine, Recombinant SC SCH (21:27)
--- NOTE | 2018-11-30 21:54 | CP.PCM.PN ---
Subjective - Date & Time of Evaluation Date of Evaluation: 11/30/18 Time of Evaluation: 07:00 - Subjective Subjective: dictated Objective - Vital Signs/Intake and Output Vital Signs (last 24 hours): Temp Pulse Resp BP Pulse Ox 98.7 F 62 20 132/66 95 11/30/18 16:21 11/30/18 16:21 11/30/18 16:21 11/30/18 17:40 11/30/18 16:21 Intake and Output: 11/30/18 12/01/18 18:59 06:59 Intake Total 400 Balance 400 - Medications Medications: Current Medications Allopurinol (Zyloprim) 100 mg PO DAILY [facility] Last Admin: 11/30/18 09:36 Dose: 100 mg Amlodipine Besylate (Norvasc) 10 mg PO DAILY [facility] Last Admin: 11/30/18 09:37 Dose: 10 mg Carvedilol (Coreg) 25 mg PO BID [facility] Last Admin: 11/30/18 17:40 Dose: 25 mg Cinacalcet (Sensipar) 30 mg PO DAILY [facility] Last Admin: 11/30/18 09:36 Dose: 30 mg Clonidine HCl (Catapres) 0.1 mg PO DAILY [facility] Last Admin: 11/30/18 09:37 Dose: 0.1 mg Epoetin Jony (Procrit) 8,000 unit SC TTS [facility] Last Admin: 11/30/18 12:37 Dose: 8,000 unit Furosemide (Lasix) 40 mg PO DAILY [facility] Hydralazine HCl (Apresoline) 50 mg PO BID [facility] Last Admin: 11/30/18 17:31 Dose: 50 mg Insulin Glargine (Lantus) 10 unit SC HS [facility] Last Admin: 11/30/18 21:27 Dose: Not Given Insulin Human Regular (Novolin R) 0 unit SC [facility]; Protocol Last Admin: 11/30/18 21:25 Dose: Not Given Pantoprazole Sodium (Protonix Ec Tab) 40 mg PO DAILY [facility] Last Admin: 11/30/18 09:37 Dose: 40 mg Prednisone (Prednisone Tab) 5 mg PO DAILY [facility] Last Admin: 11/30/18 09:37 Dose: 5 mg Rosuvastatin Calcium (Crestor) 5 mg PO HS [facility] Last Admin: 11/30/18 21:29 Dose: 5 mg Tacrolimus (Prograf Cap) 2 mg PO BID [facility] Last Admin: 11/30/18 17:40 Dose: 2 mg Tamsulosin HCl (Flomax) 0.4 mg PO DAILY [facility] Last Admin: 11/30/18 09:37 Dose: 0.4 mg Vitamin B Complex/Vit C/Folic Acid (Nephro-Mikey) 1 tab PO 0800 [facility] Last Admin: 11/30/18 07:55 Dose: 1 tab - Labs Labs: 11/30/18 07:43 11/30/18 07:43
--- NOTE | 2018-12-01 05:07 | PN ---
DATE: 11/30/2018 SUBJECTIVE: This is status post two sessions of hemodialysis. His fluid overload and edema is getting better. The patient is feeling better. He is less short of breath, less nauseous, less uremic. No fever. No cough. He is for outpatient dialysis. He will have another session of hemodialysis either today or tomorrow as per Nephrology. PHYSICAL EXAMINATION: VITAL SIGNS: Blood pressure 132/66, pulse 62, respiratory rate 20, temperature 98.7. LUNGS: Bilateral basal crepitation. No rhonchi. CARDIOVASCULAR: S1, S2, +S3 positive. ABDOMEN: Soft, nontender. Bowel sounds are positive. ASSESSMENT: 1. End-stage renal disease, on hemodialysis with a history of rejected kidney transplant. 2. Hypertension. 3. Type 2 diabetes. PLAN: Wait for the outpatient slot for hemodialysis. Continue to monitor the patient. Discontinue telemetry. Henrik García MD
[2018-12-01] MEDS: (Novolin R) Insulin Human Regular 100 units/ml vial SC SCH ×3 (07:50→17:10)
[2018-12-01] MEDS: Multivitamin Vitamin B Complex (Nephro-Vite) Tab PO SCH (09:00)
[2018-12-01] MEDS: Pantoprazole 40 mg EC Tab PO SCH (09:38)
--- NOTE | 2018-12-01 14:01 | CP.PCM.PN ---
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 pt has been accepted at outpt HD facility to start HD tuesday shift Hypertension control with meds as ordered. Maintain hemodynamics stable. Avoid hypotension. Patient not on ACEI/ARB due to advanced CKD lasix 80 mg MWF Re Tx: continue with prograf and prednisone, will gradually taper off prograf and eventually prednisone as well Dose meds/antibiotics for reduced GFR. Avoid fleets enema/magnesium based laxatives. Avoid nephrotoxins/NSAIDs/ iodinated contrast (unless needed emergently) Glycemic control Further work up/management as per primary team d/c plan okay today after HD from renal perspective pt to f/up with transplant center as well Thanks for allowing me to participate in care of your patient. Will follow katherine ent with you. Please call if any Qs. had d/w team Dr Silvano Recnios Office: [phone] Chief Complaint; leg swelling Reason for consult: CKD 5 HPI: Pt is a 73 M with hx of hypertension (years) DM ESRD s/p HD x 4 years then DDRT in 2009 with progressive decline in kidney function now with CKD 5 presented for Rt arm swelling where he had AVF and found to have stenosis s/p ballon angiplasty. renal consult for CKD and Tx management Denies OTC/herbal meds or NSAIDs No recent iodinated contrast exposure. No obvious episodes of low BP. c/o leg swelling. no nausea/vomitting/SOB. says appetite okay ROS: reports making less urine Cardiovascular: No chest pain. Pulmonary: No shortness of breath Gastrointestinal: denies abdominal pain No nausea. No vomiting. Genitourinary: No pain while urinating. Denies blood in urine. All other negative except as mentioned in HPI Physical Examination: General Appearance: Comfortable, in no acute respiratory distress, co-operative . Vitals reviewed and noted as below Head; Atraumatic, normocephalic ENT: no ulcers no thrush. Tongue is midline. Oropharynx: no rash or ulcers. EYES: Pupils are equal, round and reactive to light accommodation. Eye muscles and extraocular movement intact. Sclera is anicteric. Neck; supple no lymphadenopathy, no thyromegaly or bruit Lungs: Normal respiratory rate/effort. Breath sounds at base clearer Heart: Normal rate. s1s2 normal. No rub or gallop. Extremities: 2+ edema. No varicose veins Neurological: Patient is alert, awake and oriented to person, place and time. No focal deficit. Strength bilateral appropriate and equal Skin: Warm and dry. Normal turgor. No rash. Palpitation: Normal elasticity for age Abdomen: Abdomen is soft. Bowel sounds +. There is no abdominal tenderness, no guarding/rigidity no organomegaly Psych: normal insight and normal affect/mood MSK: no joint tenderness or swelling. Digits and nails normal, no deformity : kidney or bladder not palpable Rt AVF with thrill and bruit RUE edema + Labs/imaging reviewed. Past medical history, past surgical history, family history, social history, allergy reviewed and noted as below Family hx: no hx of CKD. Rest non-contributory Objective - Vital Signs/Intake and Output Vital Signs (last 24 hours): Temp Pulse Resp BP Pulse Ox 98.1 F 64 20 146/69 90 L 12/01/18 07:00 12/01/18 07:00 12/01/18 07:00 12/01/18 07:00 12/01/18 07:00 Intake and Output: 12/01/18 12/01/18 06:59 18:59 Intake Total 400 Balance 400 - Medications Medications: Current Medications Allopurinol (Zyloprim) 100 mg PO DAILY [facility] Last Admin: 12/01/18 09:37 Dose: 100 mg Amlodipine Besylate (Norvasc) 10 mg PO DAILY [facility] Last Admin: 12/01/18 11:00 Dose: Not Given Carvedilol (Coreg) 25 mg PO BID [facility] Last Admin: 12/01/18 11:00 Dose: Not Given Cinacalcet (Sensipar) 30 mg PO DAILY [facility] Last Admin: 12/01/18 09:44 Dose: 30 mg Clonidine HCl (Catapres) 0.1 mg PO DAILY [facility] Last Admin: 12/01/18 11:00 Dose: Not Given Epoetin Jony (Procrit) 8,000 unit SC TTS [facility] Last Admin: 11/30/18 12:37 Dose: 8,000 unit Furosemide (Lasix) 40 mg PO DAILY [facility] Last Admin: 12/01/18 11:00 Dose: Not Given Hydralazine HCl (Apresoline) 50 mg PO BID [facility] Last Admin: 12/01/18 11:00 Dose: Not Given Insulin Glargine (Lantus) 10 unit SC HS [facility] Last Admin: 11/30/18 21:27 Dose: Not Given Insulin Human Regular (Novolin R) 0 unit SC [facility]; Protocol Last Admin: 12/01/18 12:37 Dose: 1 unit Pantoprazole Sodium (Protonix Ec Tab) 40 mg PO DAILY [facility] Last Admin: 12/01/18 09:38 Dose: 40 mg Prednisone (Prednisone Tab) 5 mg PO DAILY [facility] Last Admin: 12/01/18 09:38 Dose: 5 mg Rosuvastatin Calcium (Crestor) 5 mg PO HS [facility] Last Admin: 11/30/18 21:29 Dose: 5 mg Tacrolimus (Prograf Cap) 1 mg PO BID [facility] Tamsulosin HCl (Flomax) 0.4 mg PO DAILY [facility] Last Admin: 12/01/18 09:47 Dose: 0.4 mg Vitamin B Complex/Vit C/Folic Acid (Nephro-Mikey) 1 tab PO 0800 [facility] Last Admin: 12/01/18 09:00 Dose: 1 tab - Labs Labs: 11/30/18 07:43 11/30/18 07:43
--- NOTE | 2018-12-01 17:11 | CP.PCM.PN ---
Subjective - Date & Time of Evaluation Date of Evaluation: 12/01/18 Time of Evaluation: 11:00 - Subjective Subjective: alert, orientedx3, denies acute pain or distress. Objective - Vital Signs/Intake and Output Vital Signs (last 24 hours): Temp Pulse Resp BP Pulse Ox 97.7 F 61 20 158/77 H 96 12/01/18 16:41 12/01/18 16:41 12/01/18 16:41 12/01/18 16:41 12/01/18 16:41 Intake and Output: 12/01/18 12/01/18 06:59 18:59 Intake Total 400 300 Balance 400 300 - Medications Medications: Current Medications Allopurinol (Zyloprim) 100 mg PO DAILY [facility] Last Admin: 12/01/18 09:37 Dose: 100 mg Amlodipine Besylate (Norvasc) 10 mg PO DAILY [facility] Last Admin: 12/01/18 11:00 Dose: Not Given Carvedilol (Coreg) 25 mg PO BID [facility] Last Admin: 12/01/18 11:00 Dose: Not Given Cinacalcet (Sensipar) 30 mg PO DAILY [facility] Last Admin: 12/01/18 09:44 Dose: 30 mg Clonidine HCl (Catapres) 0.1 mg PO DAILY [facility] Last Admin: 12/01/18 11:00 Dose: Not Given Epoetin Jony (Procrit) 8,000 unit IV TTS [facility] Furosemide (Lasix) 80 mg PO MWF [facility] Hydralazine HCl (Apresoline) 50 mg PO BID [facility] Last Admin: 12/01/18 11:00 Dose: Not Given Insulin Glargine (Lantus) 10 unit SC [facility] Last Admin: 11/30/18 21:27 Dose: Not Given Insulin Human Regular (Novolin R) [address] [facility]; Protocol Last Admin: 12/01/18 12:37 Dose: 1 unit Pantoprazole Sodium (Protonix Ec Tab) 40 mg PO DAILY [facility] Last Admin: 12/01/18 09:38 Dose: 40 mg Prednisone (Prednisone Tab) 5 mg PO DAILY [facility] Last Admin: 12/01/18 09:38 Dose: 5 mg Rosuvastatin Calcium (Crestor) 5 mg PO HS [facility] Last Admin: 11/30/18 21:29 Dose: 5 mg Tacrolimus (Prograf Cap) 2 mg PO BID [facility] Tamsulosin HCl (Flomax) 0.4 mg PO DAILY [facility] Last Admin: 12/01/18 09:47 Dose: 0.4 mg Vitamin B Complex/Vit C/Folic Acid (Nephro-Mikey) 1 tab PO 0800 [facility] Last Admin: 12/01/18 09:00 Dose: 1 tab - Labs Labs: 11/30/18 07:43 11/30/18 07:43 Assessment and Plan - Assessment and Plan (Free Text) Assessment: 73 year old male s/p renal transplant, admitted with kidney failure, needing HD, seen and examined in the HD room. Alert and orientedx3, able to make needs known, denies acute pain or distress. Discussed with DR García, plan to discharge home today. Patient will start outpatient hemo dialysis starting . Patient verbalized understanding of the further care and appointments.
[2018-12-01] MEDS ORDERED: EPOETIN ALFA 4,000 UNIT/ML ML Dialysis IV ONE (17:20)
[2018-12-01 18:10] VITALS: PULSE 65; RESP 16; TEMP 97.5; O2SAT 100
[2018-12-01 18:17] VITALS: BP 146/72
--- NOTE | 2018-12-01 21:50 | CP.PCM.DIS ---
Provider - Provider Date of Admission: 11/27/18 16:49 Attending physician: Henrik García MD Primary care physician: Vinny Lara MD Consults: 11/27/18 13:25 Physician Consult Routine Comment: Consulting Provider: Silvano Recinos Consulting Physician: Silvano Recinos Reason for Consult: possible dialysis Time Spent in preparation of Discharge (in minutes): 30 Hospital Course - Lab Results Lab Results: Most Recent Lab Values WBC 5.2 K/uL (4.8-10.8) 11/30/18 07:43 RBC 3.02 Mil/uL (4.40-5.90) L 11/30/18 07:43 Hgb 9.0 g/dL (12.0-18.0) L 11/30/18 07:43 Hct 27.3 % (35.0-51.0) L 11/30/18 07:43 MCV 90.2 fL (80.0-94.0) 11/30/18 07:43 MCH 29.6 pg (27.0-31.0) 11/30/18 07:43 MCHC 32.8 g/dL (33.0-37.0) L 11/30/18 07:43 RDW 14.7 % (11.5-14.5) H 11/30/18 07:43 Plt Count 131 K/uL (130-400) 11/30/18 07:43 MPV 8.6 fL (7.2-11.7) 11/30/18 07:43 Neut % (Auto) 43.3 % (50.0-75.0) L 11/30/18 07:43 Lymph % (Auto) 40.0 % (20.0-40.0) 11/30/18 07:43 Avery % (Auto) 14.4 % (0.0-10.0) H 11/30/18 07:43 Eos % (Auto) 1.4 % (0.0-4.0) 11/30/18 07:43 Baso % (Auto) 0.9 % (0.0-2.0) 11/30/18 07:43 Neut # (Auto) 2.3 K/uL (1.8-7.0) 11/30/18 07:43 Lymph # (Auto) 2.1 K/uL (1.0-4.3) 11/30/18 07:43 Avery # (Auto) 0.7 K/uL (0.0-0.8) 11/30/18 07:43 Eos # (Auto) 0.1 K/uL (0.0-0.7) 11/30/18 07:43 Baso # (Auto) 0.0 K/uL (0.0-0.2) 11/30/18 07:43 Sodium 136 mmol/L (132-148) 11/30/18 07:43 Potassium 3.6 mmol/L (3.6-5.2) 11/30/18 07:43 Chloride 101 mmol/L (98-107) 11/30/18 07:43 Carbon Dioxide 31 mmol/L (22-30) H 11/30/18 07:43 Anion Gap 8 (10-20) L 11/30/18 07:43 BUN 42 mg/dL (9-20) H 11/30/18 07:43 Creatinine 3.5 mg/dL (0.8-1.5) H 11/30/18 07:43 Est GFR ( Amer) 11/30/18 07:43 Est GFR (Non-Af Amer) 17 11/30/18 07:43 POC Glucose (mg/dL) 182 mg/dL (65-110) H 12/01/18 16:47 Random Glucose 76 mg/dL (75-110) 11/30/18 07:43 Calcium 7.9 mg/dl (8.6-10.4) L 11/30/18 07:43 Phosphorus 2.5 mg/dL (2.5-4.5) 11/30/18 07:43 Total Bilirubin 0.3 mg/dL (0.2-1.3) 11/28/18 07:34 AST 27 U/L (17-59) 11/28/18 07:34 ALT 21 U/L (21-72) 11/28/18 07:34 Alkaline Phosphatase 113 U/L (38-126) 11/28/18 07:34 Total Protein 5.2 g/dL (6.3-8.3) L 11/28/18 07:34 Albumin 3.1 g/dL (3.5-5.0) L 11/28/18 07:34 Globulin 2.1 gm/dL (2.2-3.9) L 11/28/18 07:34 Albumin/Globulin Ratio 1.5 (1.0-2.1) 11/28/18 07:34 Hep Bs Antigen Negative (NEGATIVE) 11/28/18 15:11 Hep Bs Antibody Negative (NEGATIVE) 11/28/18 15:11 Hep B Core IgM Ab Negative (NEGATIVE) 11/28/18 15:11 Hepatitis C Antibody Negative (NEGATIVE) 11/28/18 15:11 Discharge Exam - Head Exam Head Exam: NORMAL INSPECTION Discharge Plan - Discharge Medications Prescriptions: Vitamin B Complex/Vit C/Folic [Nephro-Mikey] 1 tab PO DAILY #30 tab - Follow Up Plan Condition: GOOD Disposition: HOME/ ROUTINE Instructions: Hemodialysis (DC), Arteriovenous Fistula for Dialysis (DC), End Stage Kidney Disease Additional Instructions: HD to continue TTS starting next Tuesday follow up with PMD in 1 week renal diet, continue with present meds as advised. Referrals: Silvano Recinos MD [Staff Provider] - Chan Mason Jr., MD [Staff Provider] - Vinny Lara MD [Primary Care Provider] -
[2018-12-02] MEDS ORDERED: EPOETIN ALFA 4,000 UNIT/ML ML Dialysis IV SCH (10:30)
--- NOTE | 2018-12-02 15:20 | DS ---
DISCHARGE DIAGNOSES: Chronic kidney disease, on hemodialysis, type 2 diabetes, hypertension, hyperlipidemia. HOSPITAL COURSE: This is a 73-year-old -[place] male with history of nephrotic syndrome due to diabetic nephropathy, type 2 diabetes, hypertension, hyperlipidemia, who had transplant failure and after transplant failure, he has been started on hemodialysis. He had three dialysis. He has outpatient slot for dialysis. He is feeling better, and he is for discharge. He will get outpatient dialysis on Tuesday. No fever. No chills. PHYSICAL EXAMINATION: VITAL SIGNS: Blood pressure 156/76, pulse 65, respiratory rate 16, temperature 97.5. LUNGS: Clear. No rales. No rhonchi. CARDIOVASCULAR SYSTEM: S1, S2. Regular. ABDOMEN: Soft, nontender. Bowel sounds are positive. ASSESSMENT: 1. Chronic kidney disease, on hemodialysis. 2. Type 2 diabetes. 3. Hypertension. PLAN: Discharge the patient. Monitor the patient. Henrik García MD
== END 2018-12-01 20:45 | disposition home or self-care (01) | DRG 981 ==
LOC: C.SPRAD 11:24 → C.9P 13:23 → OBSVTOIN 16:49 → C.3T 19:27
PROVIDERS: ADMIT Internal Medicine; ATTEND Internal Medicine
PROC: 05733ZZ Dilation of Right Innominate Vein, Percutaneous Approach (ICD-10-PCS; 2018-11-27)
PROC: 05753ZZ Dilation of Right Subclavian Vein, Percutaneous Approach (ICD-10-PCS; 2018-11-27)
PROC: B51MYZZ Fluoroscopy of Right Upper Extremity Veins using Other Contrast (ICD-10-PCS; 2018-11-27)
PROC: 5A1D70Z Performance of Urinary Filtration, Intermittent, Less than 6 Hours Per Day (ICD-10-PCS; principal; 2018-11-28)
PROC: 5A1D70Z Performance of Urinary Filtration, Intermittent, Less than 6 Hours Per Day (ICD-10-PCS; 2018-11-29)
PROC: 5A1D70Z Performance of Urinary Filtration, Intermittent, Less than 6 Hours Per Day (ICD-10-PCS; 2018-12-01)
DX: I12.0 Hypertensive chronic kidney disease with stage 5 chronic kidney disease or end stage renal disease (principal); N18.6 End stage renal disease; I87.1 Compression of vein; E87.2 Acidosis; N25.81 Secondary hyperparathyroidism of renal origin; Z94.0 Kidney transplant status; T86.12 Kidney transplant failure; E87.70 Fluid overload, unspecified; E83.39 Other disorders of phosphorus metabolism; E78.5 Hyperlipidemia, unspecified; I70.8 Atherosclerosis of other arteries; Z87.891 Personal history of nicotine dependence; E11.22 Type 2 diabetes mellitus with diabetic chronic kidney disease; E11.65 Type 2 diabetes mellitus with hyperglycemia; H40.9 Unspecified glaucoma; Z99.2 Dependence on renal dialysis; D64.9 Anemia, unspecified